=== PATIENT | female | born 2000 | race Caucasian/White ===

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

== ENCOUNTER 2020-03-04 11:01 | Outpatient (REF) | payer BC, SELFPAY ==
[2020-03-04 20:31] LABS: COMMENT (LAB VIEW ONLY) 142.84 mg/dL; Microalb ug/mg Crea 12.5 ug/mg Cr
--- NOTE | 2020-03-07 09:40 | PAPFT_PTH ---
PATIENT: [place] LOC: NCN U#:[id number] AGE/SX: 20/F ROOM: RE03/04/[address]: Eugenio Chaudhry : 2000 BED: DIS: 03/04/2020 SPEC #: [id number] RECD: 03/07/20 12:56 STATUS: CARLEY REDisha #: [id number] SHERON: 03/07/20 09:[address]: Eugenio Chaudhry DEPT: [facility] Cytology RECD BY: Lizzette Yepez Tissues: 1 - CX/ENDOCX FOR PAP SMEARS Procedures: PAP THIN PREP/[facility] Screening Comments: [id number] (CHLAMYDIA/GC)
[2020-03-08 15:08] LABS: Chlamydia Result Negative (Negative); GC Result Negative (Negative)
== END 2020-03-04 11:21 ==
LOC: NCHCN 11:01
PROVIDERS: PCP Nurse Practitioner Family; Visit Provider Nurse Practitioner Family
DX: Z12.4 Encounter for screening for malignant neoplasm of cervix (principal); E11.9 Type 2 diabetes mellitus without complications; Z00.00 Encounter for general adult medical examination without abnormal findings; Z11.51 Encounter for screening for human papillomavirus (HPV); R87.612 Low grade squamous intraepithelial lesion on cytologic smear of cervix (LGSIL)
CPT/HCPCS: 87491; 87591; 82043; 82570

== ENCOUNTER 2020-03-07 12:38 | Outpatient (REF) | payer BC, SELFPAY ==
[2020-03-08 12:00] LABS: Campylobacter PCR Negative (Negative); Salmonella PCR Negative (Negative); Shiga Toxin PCR Negative (Negative); Shigella/Enteroinvasive Ecoli Negative (Negative)
[2020-03-09 11:38] LABS: C Difficile PCR Negative (Negative)
== END 2020-03-07 12:58 ==
LOC: NCHCN 12:38
PROVIDERS: PCP Nurse Practitioner Family; Visit Provider Nurse Practitioner Family
DX: R19.7 Diarrhea, unspecified (principal)
CPT/HCPCS: 87329; 87505; 88142; 87177; 87324; 87798

== ENCOUNTER 2020-07-11 21:53 | Outpatient (REF) | payer BC, SELFPAY ==
[2020-07-11 20:28] LABS: Abs Immature Grans 0.03 10^3/uL (0.0-0.06); Absolute Basophil Count 0.03 10^3/uL (0.0-0.2); Absolute Eosinophil Count 0.12 10^3/uL (0.0-0.7); Absolute Lymphocyte Count 3.16 10^3/uL (1.2-3.4); Absolute Monocyte Count 0.43 10^3/uL (0.1-0.8); Basophils % 0.3; Eosinophils % 1.3; HCT 39.2 % (36.0-46.0); HGB 12.7 g/dL (11.2-15.7); Immature Grans % 0.3; Lymphocytes % 34.8; MCH 24.9 pg (27.0-33.0); MCHC 32.4 % (32.0-36.0); MCV 76.7 fL (80-95); MPV 10.9 fL (8.0-11.0); Monocytes % 4.7; Neutrophils % 58.6; Nucleated RBC 0 %; Platelet Count 375 10^3/uL (130-400); RBC 5.11 10^6/uL (3.93-5.22); RDW 13.4 % (11.7-14.6); WBC 9.07 10^3/uL (4.4-10.8)
[2020-07-11 20:49] LABS: ALT 14 U/L (14-59); AST 13 U/L (15-37); Albumin 3.7 g/dL (3.4-5.0); Alkaline Phosphatase 94 U/L (46-116); Anion Gap 12.5 mmol/L (3-11); BUN 10 mg/dL (7-18); Bilirubin, Total 0.3 mg/dL (0.2-1.0); CO2 23.5 mmol/L (21.0-32.0); CREATININE 0.59 mg/dL (0.55-1.02); Calcium 9.5 mg/dL (8.5-10.1); Chloride 102 mmol/L (98-107); Glucose 110 mg/dL (74-106); Potassium 3.7 mmol/L (3.5-5.1); Sodium 138 mmol/L (136-145); Total Protein 7.8 g/dL (6.4-8.2)
[2020-07-11 21:16] LABS: ESR 18 mm/hr (0-20)
[2020-07-14 09:40] LABS: Patient Race White; SARS-CoV-2 RNA Undetected (Undetected); SARS-CoV-2 Specimen Source Nasal
[2020-07-18 17:22] LABS: Lyme Ab w Rflx to Lyme Confirm Equivocal (Negative)
[2020-07-18 17:23] LABS: Anaplasma phagocytophilum Negative (Negative); B. miyamotoi PCR Negative (Negative); Babesia divergens/MO-1 Negative (Negative); Babesia duncani Negative (Negative); Babesia microti Negative (Negative); Ehrlichia chaffeensis Negative (Negative); Ehrlichia ewingii/canis Negative (Negative); Ehrlichia muris eauclairensis Negative (Negative)
[2020-07-22 14:19] LABS: IgG Immunoblot Negative (Negative)
[2020-07-22 14:20] LABS: IgG Band(s) See Comments
[2020-07-22 14:21] LABS: IgM Immunoblot Uninterpretable (Negative)
[2020-07-22 14:25] LABS: Immunoblot Interpretation See Comments
== END 2020-07-11 22:13 ==
LOC: NCHCN 21:53
PROVIDERS: PCP Nurse Practitioner Family; Visit Provider Nurse Practitioner Family
DX: R19.7 Diarrhea, unspecified (principal); M79.10 Myalgia, unspecified site
CPT/HCPCS: 80053; 85652; 86617; 87798; U0003; 85025; 86618

== ENCOUNTER 2020-07-25 19:43 | Outpatient (REF) | payer BC, SELFPAY ==
[2020-07-25 20:46] LABS: Iron 72 ug/dL (50-170); Total Iron Binding Capacity 575 ug/dL (250-450)
[2020-07-27 11:41] LABS: Lyme Ab w Rflx to Lyme Confirm Negative (Negative)
[2020-07-28 00:04] LABS: Anaplasma phagocytophilum Negative (Negative); B. miyamotoi PCR Negative (Negative); Babesia divergens/MO-1 Negative (Negative); Babesia duncani Negative (Negative); Babesia microti Negative (Negative); Ehrlichia chaffeensis Negative (Negative); Ehrlichia ewingii/canis Negative (Negative); Ehrlichia muris eauclairensis Negative (Negative)
== END 2020-07-25 20:03 ==
LOC: NCHCN 19:43
PROVIDERS: PCP Nurse Practitioner Family; Visit Provider Nurse Practitioner Family
DX: D50.9 Iron deficiency anemia, unspecified (principal); M79.18 Myalgia, other site
CPT/HCPCS: 87798; 83540; 83550; 86618

== ENCOUNTER 2020-08-05 10:16 | Outpatient (CLI) | payer BC, SELFPAY ==
--- NOTE | 2020-08-05 | DI.RAD_ITS ---
EXAM: XR CHEST 2V PA LATERAL CLINICAL HISTORY: SOB R06.02 TECHNIQUE: 2D digital imaging was performed. COMPARISON: No exams were available for comparison FINDINGS: MEDIASTINUM: Normal. HEART: Normal. PULMONARY VASCULATURE: Normal. LUNGS: Clear. PLEURAL SPACE: No pleural effusion or pneumothorax. BONE:Within normal limits for the patient's age. OTHER FINDINGS:Normal. IMPRESSION: No acute pulmonary findings. DATA REPOSITORY: RADIATION DOSE DELIVERED:
== END 2020-08-05 10:36 ==
PROVIDERS: PCP Nurse Practitioner Family; Visit Provider Nurse Practitioner Family
DX: R06.02 Shortness of breath (principal)
CPT/HCPCS: 71046

== ENCOUNTER 2020-08-05 16:20 | Outpatient (REF) | payer BC, SELFPAY ==
[2020-08-08 16:07] LABS: COVID-19 RT-PCR UVMMC Result Negative (Negative)
== END 2020-08-05 16:40 ==
LOC: NCHCN 16:20
PROVIDERS: PCP Nurse Practitioner Family; Visit Provider Nurse Practitioner Family
DX: R06.02 Shortness of breath (principal)
CPT/HCPCS: U0003

== ENCOUNTER 2022-11-21 14:59 | Outpatient (REF) | payer BC, SELFPAY ==
--- NOTE | 2022-11-21 10:00 | PAPFT_PTH ---
PATIENT: [place] Ivan LOC: NCN #:[id number] AGE/SX: / ROOM: RE11/21/[address]: Jackie Doty : 2000 BED: DIS: 11/21/2022 SPEC #: [id number] RECD: 11/21/22 17:39 STATUS: CARLEY REDisha #: [id number] SHERON: 11/21/22 10:[address]: Jackie Doty DEPT: [facility] Cytology RECD BY: Lizzette Yepez Tissues: 1 - CX/ENDOCX FOR PAP SMEARS Procedures: PAP THIN PREP/[facility] Screening Comments: [id number]
[2022-11-21 15:24] LABS: Anion Gap 13.4 mmol/L (3-11); BUN 9 mg/dL (7-18); CO2 23.6 mmol/L (21.0-32.0); CREATININE 0.6 mg/dL (0.55-1.02); Calculated LDL 130 mg/dL (<100); Chloride 106 mmol/L (98-107); Cholesterol 185 mg/dL (<200); Estimated GFR 129.27 (mL/min/1.73m2); Glucose 168 mg/dL (74-106); HDL Cholesterol 36 mg/dL (40-60); Potassium 4.2 mmol/L (3.5-5.1); Sodium 143 mmol/L (136-145); Triglyceride 96 mg/dL (<150)
== END 2022-11-21 15:00 | disposition home or self-care (01) ==
LOC: NCHCN 14:59
PROVIDERS: Visit Provider Family Medicine
DX: Z00.00 Encounter for general adult medical examination without abnormal findings (principal); E03.9 Hypothyroidism, unspecified; E11.9 Type 2 diabetes mellitus without complications; Z12.4 Encounter for screening for malignant neoplasm of cervix; Z01.419 Encounter for gynecological examination (general) (routine) without abnormal findings; R87.612 Low grade squamous intraepithelial lesion on cytologic smear of cervix (LGSIL)
CPT/HCPCS: 80048; 80061; 88142; 84443